=== PATIENT | male | born 1935 | race Caucasian/White ===

== ENCOUNTER 2019-10-03 14:11 | Emergency (ER) | payer MEDICARE, OTHER ==
[2019-10-03 14:18] VITALS: BP 167/78
[2019-10-03] MEDS ORDERED: ATORVASTATIN CA40 MG PO (14:20)
[2019-10-03] MEDS ORDERED: PRILOSEC 20MG20 MG PO (14:20)
[2019-10-03] MEDS ORDERED: LOSARTAN POTASS1 TA4 PO (14:20)
[2019-10-03] MEDS ORDERED: POTASSIUM CHLO20 ME4 PO (14:20)
[2019-10-03] MEDS ORDERED: HYDROXYZINE HCL25 M1 PO (14:20)
[2019-10-03] MEDS ORDERED: ZOLPIDEM TART10 MG PO (14:20)
[2019-10-03] MEDS ORDERED: CLOPIDOGREL75 M2 PO (14:20)
[2019-10-03] MEDS ORDERED: LEVOTHYROXINE100 MC1 PO (14:20)
[2019-10-03] MEDS ORDERED: TOPROL XL 25MG25 MG PO (14:20)
[2019-10-03] MEDS ORDERED: NORCO 325 MG-51 TA1 PO (16:01)
[2019-10-03] MEDS ORDERED: CEPHALEXIN500 M1 PO (16:01)
== END 2019-10-03 16:12 | disposition home or self-care (01) ==
LOC: ED 14:11
DX: S61.210A Laceration without foreign body of right index finger without damage to nail, initial encounter (principal); I10 Essential (primary) hypertension; E78.5 Hyperlipidemia, unspecified; E03.9 Hypothyroidism, unspecified; Z79.02 Long term (current) use of antithrombotics/antiplatelets; W26.8XXA Contact with other sharp object(s), not elsewhere classified, initial encounter; Y92.009 Unspecified place in unspecified non-institutional (private) residence as the place of occurrence of the external cause

== ENCOUNTER → 2019-10-06 | Outpatient (CLI) | payer MEDICARE, OTHER ==
[2019-10-03 14:18] VITALS: BP 167/78
[~2019-10-06] MED LIST: ATORVASTATIN CA40 MG PO; CEPHALEXIN500 M1 PO; CLOPIDOGREL75 M2 PO; HYDROXYZINE HCL25 M1 PO; LEVOTHYROXINE100 MC1 PO; LOSARTAN POTASS1 TA4 PO; NORCO 325 MG-51 TA1 PO; POTASSIUM CHLO20 ME4 PO; PRILOSEC 20MG20 MG PO; TOPROL XL 25MG25 MG PO; ZOLPIDEM TART10 MG PO
== END ==
LOC: RAD 09:21
DX: M79.644 Pain in right finger(s) (principal)

== ENCOUNTER → 2024-05-27 | Outpatient (CLI) | payer MEDICARE, OTHER ==
[~2024-05-27] MED LIST changes: +FLOMAX0.4 MG PO; +Iohexol 350 - 100 ML VIAL IV ONE; +ZOFRAN ODT4 MG PO
== END ==
LOC: RAD 09:44
DX: I71.43 Infrarenal abdominal aortic aneurysm, without rupture (principal)
CPT/HCPCS: Q9967

== ENCOUNTER → 2024-06-08 | Outpatient (CLI) | payer MEDICARE, OTHER ==
[~2024-06-08] MED LIST changes: -Iohexol 350 - 100 ML VIAL IV ONE
== END ==
LOC: RAD 12:07
DX: M43.16 Spondylolisthesis, lumbar region (principal); M24.28 Disorder of ligament, vertebrae; M89.38 Hypertrophy of bone, other site; M51.36 Other intervertebral disc degeneration, lumbar region; M47.816 Spondylosis without myelopathy or radiculopathy, lumbar region; M48.061 Spinal stenosis, lumbar region without neurogenic claudication

== ENCOUNTER → 2024-12-08 | Outpatient (CLI) | payer MEDICARE, OTHER | LOC: RAD 11:23 | DX: M47.814 Spondylosis without myelopathy or radiculopathy, thoracic region (principal) ==